=== PATIENT | male | born 1965 | race Caucasian/White ===

== ENCOUNTER 2025-09-25 18:24 | Emergency (ER) | payer OTHER, SELFPAY ==
[2025-09-25] VITALS (8 sets, daily range): BP systolic 75–138; BP diastolic 50–88; PULSE 106–120; RESP 11–25; TEMP 36.6; O2SAT 88–99; BMI 28.1
--- OUTSIDE RECORDS SUMMARY | 2025-09-25 20:20 | XMS RPT_ITS | CCD ---
Author Organization [facility] Inform ion Partnership [facility] Care Team Providers Care Spare Hand Carding Name Role Phone Edilma Shepard MD Unavailable Edilma Shepard MD Unavailable Tomas NASCIMENTO, Dr. Raman Unavailable [phone] Bonny Hall LPN Unavailable Unavailabl priscila Bashir PA-C, Katy Ramos Unavailable [phone] Maggy Wong MA Unavailable Unavailable MANDEEP SHAH Admitting Unavailable MANDEEP SHAH Primary Care Unavailable MANDEEP SHAH Attending Unavailable EDILMA SHEPARD Consulting Unavailable PROVIDER, UNKNOWN Consulting Unavailable PROVIDER, UNKNOWN Consulting Unavailable PROVIDER, UNKNOWN Consulting Unavailable [place], [place] [employer] Admitting Unavailable W[place], [place] [employer] Primary Care Unavailable WAVER[place], [place] [employer] Attending Unavailable EDILMA SHEPARD Consulting Unavailable PROVIDER, UNKNOWN Consulting Unavailable PROVIDER, UNKNOWN Consulting Unavailable PROVIDER, UNKNOWN Consulting Unavailable Medications Completed/Discontinued Medications Medication Drug Class(es) Dates Sig (Normalized) Sig (Original) [id number] 200 actuat albuterol 0.09 mg/actuat metered dose inhaler (4 sources) beta2-Adrenergic Agonist Start: 04-18-2013 End: 01-27-2015 take 2 puff(s) by inhalation every four to six hours as needed PROAIR HFA, 108 (90 Base)MCG/ACT (Inhalation Aerosol Solution) ; 2 (two) puff(s) every 4-6 hours as needed for 0 days Quantity: 1 {inhaler(s)} Refills: 0 Ordered: 27-Jan-2015 CORAL Hall Start: 18-Apr-2013 End: 27-Jan-2015 Status: Inactive Comments: Medication taken as needed. Comment on above: Medication taken as needed. amoxicillin 875 mg / clavulanate 125 mg oral tablet (8 sources) Penicillin-class Antibacterial Start: 02-06-2023 End: 02-16-2023 take 1 tablet by mouth twice daily Amoxicillin-Pot Clavulanate 875-125 MG Oral Tablet ; 1 (one) Tablet bid for 10 days Quantity: 20 {Tablet} Refills: 0 Ordered: 06-Feb-2023 MD Edilma Shepard Start: 06-Feb-2023 End: 16-Feb-2023 Status: Inactive Start: 01-27-2015 End: 02-06-2015 take 1 tablet by mouth twice daily at mealtime AUGMENTIN, 875-125MG (Oral Tablet) ; 1 (one) Tablet BID for 10 days Quantity: 20 {Tablet} Refills: 0 Ordered: 27-Jan-2015 RAFAEL Bashir Start: 27-Jan-2015 End: 06-Feb-2015 Status: Inactive Comments: Take with food Comment on above: Take with food azithromycin 250 mg oral tablet (4 sources) Macrolide Antimicrobial Start: 04-18-2013 End: 01-27-2015 ZITHROMAX Z-SUSAN, 250MG (Oral Tablet) ; 2 (two) Tablet today and then 1 tablet daily x 4 days for 0 days Quantity: 1 {z-susan} Refills: 0 Ordered: 27-Jan-2015 CORAL Hall Start: 18-Apr-2013 End: 27-Jan-2015 Status: Inactive Problems Active Problems Problem Classification Problem Date Documented Da te Episodic/Chronic Chronic obstructive pulmonary disease and bronchiectasis (8 sources) Bronchitis; Translations: [Bronchitis, not specified as acute or chronic] 01-28-2015 Episodic Conditions associated with dizziness or vertigo (8 sources) Benign paroxysmal positional vertigo; Translations: [Benign paroxysmal vertigo, unspecified ear] 02-06-2023 Episodic Other skin disorders (8 sources) Sebaceous cyst of skin; Translations: [Sebaceous cyst] 11-06-2023 Episodic Other skin disorders (4 sources) Infection of sebaceous cyst; Translations: [Sebaceous cyst] 02-06-2023 Episodic Past or Other Problems Problem Classification Problem Date Documented Da te Episodic/Chronic Unclassified (4 sources) cyst - patient reports cyst in the middle of his back, over the last week it got worsereports redness and swelling and pain when bumped reviewed by [facility] 02-06-2023 Unclassified (4 sources) Dizziness - The onset of the dizziness has been gradual and has been occurring in a persistent pattern for 5 days. The course has been recurrent (Seemed to be lessening every day until this morning.). The dizziness is characterized as spinning of the environment. The dizziness is precipitated by position change. There has been no associated nausea, vomiting, headache, fever or ear pain. The dizziness is exacerbated by getting up quickly (laying down and sitting). Note for Dizziness: About 3 weeks ago he had sinusitis and bronchitis symptoms. Continues with some symptoms. Cough is productive. No treatment. 01-28-2015 Unclassified (4 sources) Cold Symptoms - Symptoms include sneezing, nasal congestion, runny nose (drainage is clear), sore throat, scratchy throat, productive cough (phlegm is colored), fever (has not been checking his temperature), headache and facial pain, but do not include ear pain. The onset was sudden 5 day(s) ago (worsening since yesterday). The symptoms occur constantly. The patient describes this as moderate in severity. Current treatment includes acetaminophen and NSAIDs. The patient has not been exposed to an individual with similar symptoms. Medical history includes recurrent sinusitis, but patient denies history of seasonal allergies, recurrent strep pharyngitis, asthma, tonsillectomy or recurrent ear infections. Note for Upper respiratory infection: Has noticed wheezing and shortness of breath with activity. 04-18-2013 Results Test Name Value Interpretation Reference Range Facility LIPID PROFILEon 01-28-2025 Cholesterol [Mass/Vol] 177 mg/dL Normal 0 - 240 [facility] Comment on above: Performed By: #### 2 [id number] #### [address] [address] Cholesterol in HDL [Mass/Vol] 65 mg/dL High 40 - 60 [facility] Comment on above: Performed By: #### 2 12050 #### [address] [address] Cholesterol in LDL [Mass/Vol] 100 mg/dL Normal 0 - 129 [facility] Comment on above: Performed By: #### 2 [id number] #### [address] [address] Cholesterol.total /Cholesterol in HDL [Mass ratio] 2.7 {ratio} Normal 0.0 - 5.0 [facility] Comment on above: Performed By: #### 2 [id number] #### [facility],[address] [place] [address] Lipid 1996 panel Normal [facility] Comment on above: Result Comment: LIPI D PROFILE Performed By: #### 2 [id number] #### [facility],[address] [place] [address] Triglyceride [Mass/Vol] 62 mg/dL Normal 0 - 150 [facility] Comment on above: Performed By: #### 2 01681 #### [facility],[address] [place] [address] Final Surgical Pathology Rep [facility] 02-06-2024 Final Surgical Pathology Report . Pathology Reports Accession: Collected Date/Time: Received Date/Time: Pathologist: [id number] 02/04/2024 08:10 EDT 02/05/2024 09:07 EDT JAQUAN ABBOTT MD Final Surgical Pathology Report DIAGNOSIS: RIGHT BACK SKIN LESION: - EPIDERMAL INCLUSION CYST COMMENT: [id number] CLINICAL INFORMATION: BACK SKIN LESION SPECIMEN: A BACK SKIN LESION RIGHT GROSS DESCRIPTION: All parts labelled with patient name and [id number] Received in formalin labelled right back skin lesion Is a white -pink-jefferson partially collapsed cystic soft tissue with no identified surfacing skin measuring 4.5 x 3 x 2.8 cm. Sectioning reveals a cystic cavity throughout with a smooth cyst wall and no identified excrescences. RS-1 Lilia Pearson, Pathologists' Stock Transfer Clerk (ASCP) Dictated by LILIA PEARSON MICROSCOPIC DESCRIPTION: The microscopic examination is performed, except in the case of Gross Only. Electronically Signed by Pathology Report verified by [facility] JQAUAN ABBOTT Sign out Date: 02/06/2024 14:24 Performing Lab: [facility], [address] [place] [id number] [facility] Pathology Dept Disclaimer If ancillary studies were utilized, the following Laboratory Developed Test (LDT) disclaimer will apply: Under CLIA requirements, [facility] Pathology Laboratory is qualified to perform high complexity testing. For all ancillary stains, positive and negative controls stain appropriately. Performance characteristics of immunohistochemical and chromogenic in-situ hybridization tests have been determined by [facility]ology Laboratory. These tests are used for clinical purposes, They should not be regarded as investigational or for research. Normal [facility] ([place]) OPERATIVE PROCEDURESon 02-03 OPERATIVE PROCEDURES [facility] OPERATIVE REPORT NAME ACCOUNT SEX AGE ADMIT DISCHARGE PT MED. RECORD# NUMBER DATE DATE TYPE BRICE WONG [id number] M 58 02/04/24 02/04/24 2 A [id number] ROOM: [facility] DATE OF : 1965 DICTATING PHYSICIAN: Mandeep Shah DATE OF SURGERY: February 04, 2024 SURGEON: Mandeep Shah MD CHAIRMAN & CO FOUNDER: Nahum Altman CSA ANESTHESIOLOGIST: Colt Barnard MD ANESTHETIC: Local with 20 mL of 0.25% Sensorcaine with epinephrine. PREOPERATIVE DIAGNOSIS: POSTOPERATIVE DIAGNOSIS: Right back lesion. OPERATION PERFORMED: Excision of right back lesion. COMPLICATIONS: ESTIMATED BLOOD LOSS: Less than 3 mL. DRAIN: Quarter-inch fenestrated Cardale drain to separate wound site. FLUIDS GIVEN: 1000 mL of crystalloid. SPECIMEN: Right back lesion to Pathology. DISPOSITION: Stable, to recovery. INDICATIONS: Brice Wong is a 58-year-old gentleman who has a right back lesion which has been enlarging. DESCRIPTION OF OPERATION: After informed consent, demarcation, intravenous fluids and antibiotics, he was brought to the operating room and given anesthesia. He was then placed in the prone position and prepped and draped in the usual sterile fashion. Time-out verification was done. The demarcated lesion was carefully palpated, demarcated, and locally anesthetized with approximately 20 mL of 0.25% Sensorcaine Page 1 of 2 BRICE WONG Operative Report BRICE WONG : 1965 with epinephrine. Then an incision was made transversely over this lesion. The underlying sac-like structure was carefully dissected free with sharp dissection as well as electrocautery. The sac was sent to pathology. There was some foul-smelling material in this sac. The wound was copiously irrigated with antibiotic solution and checked for good hemostasis. Then a separate stab wound was created below the original incision. Through this, a quarter-inch fenestrated Bharat drain was placed and sutured in place with 3-0 Ethilon. The deeper layers of the wound were approximated with inverted interrupted 2-0 undyed Vicryl. The skin edges were held in nice closure with interrupted mattress sutures of 3-0 Ethilon followed by mupirocin and sterile dressings. The patient tolerated the procedure well. He was awakened and sent to the recovery room in good condition. The case will be discussed with the patient and spouse when he is more awake and alert. Follow-up for pathology will be in my office. Dictated By: Mandeep Shah MD 02/04/24 08:54 JOB #: [id number] Transcribed By: toan 02/04/24 20:52 Electronically signed by: E-Sign Dr. Mandeep Shah MD 02/04/24 22:19 Page 2 of 2 BRICE WONG A Operative Report Normal [facility] Vital Signs Date Time Vital Sign Value Performing Clinician Facility 02-06-2023 13:32-0400 Body height 172.72 cm Maggy Wong MA [facility], [facility].; [employer] [facility], [facility]. 02-06-2023 13:32-0400 Body mass index (BMI) [Ratio] 29.5 kg/m2 Maggy Wong MA [facility], [facility].; [facility], [facility]. 02-06-2023 13:32-0400 Body surface area Derived from formula 2.02 m2 Maggy Wong MA [facility], [facility].; [facility], [facility]. 02-06-2023 13:32-0400 Body weight 88 kg Maggy Wong MA [facility], [facility]; [employer] [facility], [facility]. 02-06-2023 13:32-0400 Diastolic blood pressure 82 mm[Hg] Maggy Wong MA [facility], [facility].; [employer] [facility], [facility]. Comment on above: Patient Position: Sitting; Cuff Location : Left Arm; Cuff Size: Standard 02-06-2023 13:32-0400 Heart rate 106 /min Maggy Wong MA [facility], [facility]; [employer], [facility]. Comment on above: Pattern: Regular 02-06-2023 13:32-0400 Systolic blood pressure 120 mm[Hg] Maggy [facility], [facility].; [place] [employer] [facility]. Comment on above: Patient Position: Sitting; Cuff Location : Left Arm; Cuff Size: Standard 01-27-2015 [id number]:110400 Body height 172.72 cm Bonny Hall CORAL [facility], [facility].; [employer] 01-27-2015 14:11-0400 Body mass index (BMI) [Ratio] 30.12 kg/m2 Bonny [facility], [facility] [employer], [employer]. 01-27-2015 14:11-0400 Body surface area Derived from formula 2.04 m2 Bonny Packibrahima [facility], [facility].; [place] [employer], [employer]. 01-27-2015 14:110400 Body temperature 97.7 [degF] Bonny [facility], [facility].; [employer]. Comment on above: Method: Tympanic 01-27-2015 14:110400 Body weight 89.87 kg Bonny Packibrahima CONSTRUCTION CODE ADMINISTRATOR [facility], [facility].; [employer], [employer]. 01-27-2015 14:11-0400 Diastolic blood pressure 94 mm[Hg] Bonny Packibrahima [facility], [facility] [employer]. Comment on above: Patient Position: Sitting; Cuff Location : Left Arm; Cuff Size: Standard 01-27-2015 14:110400 Heart rate 68 /min Bonny Weibrahima MONCADA [facility], [facility] [employer]. Comment on above: Pattern: Regular 01-27-2015 14:11-0400 Inhaled oxygen concentration 20 % Bonny Weibrahima [facility] [employer] [facility], [facility].; [employer]. Comment on above: Room air 01-27-2015 14:11-0400 Inhaled oxygen concentration 21 % Bonny Hall [facility] [employer]. Comment on above: Room air 01-27-2015 14:11-0400 SaO2% (BldA) [Mass fraction] 99 % Bonny Hall [facility] [place] [employer] [facility], [employer]. 01-27-2015 14:11-0400 Systolic blood pressure 135 mm[Hg] Bonny Packibrahima MONCADA [facility], [facility].; [place] [employer], [employer]. Comment on above: Patient Position: Sitting; Cuff Location : Left Arm; Cuff Size: Standard 04-18-2013 08:34-0400 Body height 172.72 cm Bonny Isabel MONCADA [facility] [place] [employer] [facility], [employer]. 04-18-2013 08:34-0400 Body mass index (BMI) [Ratio] 29.69 kg/m2 Bonny Weibrahima [facility], [facility] [place] [employer], [employer]. 04-18-2013 08:34-0400 Body surface area Derived from formula 2.02 m2 Bonnyjavon Hall LPN [facility] [employer], [employer]. 04-18-2013 08:34-0400 Body temperature 99.5 [degF] [facility]ny [facility], [facility].; [employer], [employer]. Comment on above: Method: Tympanic 04-18-2013 08:34-0400 Body weight 88.57 kg Bonny Weibrahima MONCADA [facility], [facility].; [place] [employer] 04-18-2013 08:34-0400 Diastolic blood pressure 82 mm[Hg] Bonny Isabel MONCADA [facility], [facility].; [employer], [employer]. Comment on above: Patient Position: Sitting; Cuff Location : Left Arm; Cuff Size: Standard 04-18-2013 08:34-0400 Heart rate 76 /min Bonny Isabel [place]ADA [place] [employer] [facility], [facility].; [employer]. Comment on above: Pattern: Regular 04-18-2013 08:34-0400 Inhaled oxygen concentration 20 % Bonny Hall LPN [facility] [employer], [employer]. Comment on above: Room air 04-18-2013 08:34-0400 Inhaled oxygen concentration 21 % Bonny Hall LPN [place] [employer] [facility], [facility] [employer]. Comment on above: Room air 04-18-2013 08:34-0400 SaO2% (BldA) [Mass fraction] 95 % Bonny Hall LPN [place] [facility] [place] [facility] 04-18-2013 08:34-0400 Systolic blood pressure 122 mm[Hg] Bonny Hall LPN [facility] [employer] [facility] [place] [facility]. Comment on above: Patient Position: Sitting; Cuff Location : Left Arm; Cuff Size: Standard Encounters Encounter Date Encounter Type Care Provider Facility Start: 01-28-2025 End: 01-28-2025 [facility] Start: 02-04-2024 End: 02-04-2024 [facility] Start: 11-06-2023 End: 11-06-2023 Orders [facility]il[facility] Shepard [facility] Start: 02-06-2023 End: 02-06-2023 Patient encounter procedure Edilma Shepard MD Work Phone: [facility] [facility] Start: 01-27-2015 End: 01-28-2015 Patient encounter procedure Edilma Shepard MD Work Phone: [facility] Start: 04-18-2013 End: 04-18-2013 Patient encounter procedure Edilma Shepard MD Work Phone: [facility] Procedures Date Procedure Procedure Detail Performing Clinician Start: 02-06-2023 End: 02-06-2023 Incision & drainage abscess simple/single Edilma Shepard MD Work Phone: Start: 04-18-2013 End: 04-18-2013 No Known Past Surgical History Bonny Hall LPN Plan of Treatment Date Care Activity Detail Author Start: 01-27-2015 Patient Education Positional V ertigo *: benign paroxysmal positional vertigo Indication: BPPV (benign paroxysmal positional vertigo) Start: 27-Jan-2015 Instruction Type: Patient Education [facility] [employer]. Social History Date Type Detail Facility Caffeine Use Caffeine Use [facility] [employer] [place] [facility]. Marital status: Marital status: ; . [place] [employer] [facility] [employer]. Tobacco Use: Tobacco Use: ; Never smoker. [place] [employer] [facility].; [employer]. Male [facility] [employer].; [employer]. Work Phone: Never smoked tobacco [place] [employer] [facility].; [employer] Work Phone: [facility] [employer].; [employer]. Work Phone: Family History No Family History Records Found Cancer Status:Active Comments:Sister. Brain tumor Coronary Artery Disease Status:Active Comments :Father. Hypertension Status:Active Comments:Mother. Cancer Status:Active Comments:Sister. Brain tumor Coronary Artery Disease Status:Active Comments :Father. Hypertension Status:Active Comments:Mother. Cancer Status:Active Comments:Sister. Brain tumor Coronary Artery Disease Status:Active Comments :Father. Hypertension Status:Active Comments:Mother. Cancer Status:Active Comments:Sister. Brain tumor Coronary Artery Disease Status:Active Comments :Father. Hypertension Status:Active Comments:Mother. Summary Purpose Advance Directives No Advanced Directives Records FoundNo Advanced Directives Records Found Additional Source Comments (unrecognized sect ion and content) No Status Records FoundNo Status Records Found INFORMATION SOURCE (unrecogn ized section and content) DATE CREATED AUTHOR 02/08/2024 [facility] ([place]) DATE CREATED AUTHOR AUTHOR'S ORGANIZ ATION 01/30/2025 [facility] FOR RECORDS PERTAINING TO PATIENTS WHO ARE OR HAVE BEEN ENROLLED IN A CHEMICAL DEPENDENCY/SUBSTANCEABUSE PROGRAM, SOME INFORMATION MAY BE OMITTED. This clinical summary was aggregated from multiple sources. Caution should be exercised in using it in the provision of clinical care. This summary normalizes information from multiple sources, and as a consequence, information in this document may materially change the coding, format and clinical context of patient data. In addition, data may be omitted in some cases. CLINICAL DECISIONS SHOULD BE BASED ON THE PRIMARY CLINICAL RECORDS. [facility] provides no warranty or guarantee of the accuracy or completeness of information in this document.
--- NOTE | 2025-09-25 20:32 | EX.ED.UPPERE ---
HPI History of Present Illness Chief Complaint: Upper Extremity Injury Narrative Narrative: Chief complaint and HPI: 59-year-old male with no significant past medical history other than recent left shoulder tumor diagnosis presents for evaluation of left shoulder pain. Patient states he had a rotator cuff injury in which he was seeing an orthopedic physician. 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 He states he is currently following up with oncology in [place] in which the plan will be for biopsies. Patient states he began having pain in his left shoulder today which he describes as burning. Pain is worse with movement of the arm. He denies any fever, chills, shortness of breath, chest pain, abdominal pain, nausea, vomiting, numbness or tingling. Review of systems: See HPI Medications: As listed on the chart Allergies: As listed on the chart PFSH: Per chart Vital signs: As listed on the chart. Reviewed. Physical exam: Gen: A&O x3, NAD Head: Normocephalic, atraumatic Eyes: No sclera icterus, conjunctiva clear ENT: Moist mucous membranes Neck: Trachea midline, No JVD, full range of motion, nontender CV: RRR, no murmurs Resp: Lungs CTA BL, no w/r/c GI: Abd soft, non-distended, non-tender, no r/r/g Musc: Full range of motion of all the extremities including the left upper extremity although endorses pain with movement of the left shoulder, left shoulder is tender to palpation diffusely, left shoulder without erythema/warmth/ecchymosis/swelling, radial pulse +2 bilaterally, good capillary refill, compartments soft, sensation intact no midline spinal tenderness, no bony step-off Skin: Warm, dry Neuro: Alert, oriented, grossly intact Psych: Cooperative, appropriate mood and affect PFS PFSH Medical History Contact dermatitis Home Medications ?Medication ?Instructions ?Recorded ?Last Taken ?Type NK 09/25/25 Unknown History Allergy/AdvReac Type Severity Reaction Status Date / Time No Known Allergies Allergy Verified 09/25/25 18:25 Family History no significant family his Surgical History no surgical history Social History Smoking Status: Never smoker EXAM Physical Exam Const Vital Signs: 09/25/25 18:24 Temperature 97.8 F Temperature Source Oral Pulse Rate 120 H Respiratory Rate 18 Blood Pressure 92/78 Blood Pressure Mean 82 Pulse Ox 99 Oxygen Delivery Method Room Air MDM MDM MDM Narrative Medical decision making narrative: 59-year-old male with no significant past medical history other than recent left shoulder tumor diagnosis presents for evaluation of left shoulder pain. Patient states he had a rotator cuff injury in which he was seeing an orthopedic physician. 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 He states he is currently following up with oncology in [place] in which the plan will be for biopsies. Patient states he began having pain in his left shoulder today which he describes as burning. Pain is worse with movement of the arm. On chart review, and unable to review the recent MRI. MRI currently in the system is from 2012. On presentation, patient is tachycardic but they think it is secondary to pain. He is soft blood pressure. Fentanyl, NS bolus, Zofran ordered. Patient's blood pressure improved prior to receiving fluids. Morphine ordered for pain. Basic labs ordered with CT of the shoulder. Differential diagnosis includes but is not limited to pain secondary to tumor, hemorrhage secondary to tumor, occult fracture. CBC with mild leukocytosis of 12.2. No anemia. BMP shows mild dehydration with mild hyponatremia at 130 and a creatinine of 1.41. Patient does not know his baseline labs. I do not have previous labs to compare to. States he has been eating and drinking well. CT of the left shoulder shows probable large heterogeneous infiltrative soft tissue mass surrounding the left glenohumeral joint. Associated ill-defined aggressive osseous erosion/lytic changes involving the medial body and glenoid of the left scapula, and proximal left humeral head/guidepin for cyst. Acute comminuted pathological fracture left scapular glenoid. No dislocation. Given patient follows with [facility], I did consult them and I spoke with Dr. Carvajal. Plan is sling and pain management. Follow-up with oncology. On reevaluation, despite morphine, fentanyl patient is still endorsing severe pain. He is tachycardic secondary to the pain. Dilaudid ordered. Plan will be to admit the patient for pain control. I spoke with the hospitalist, Dr. Mason. Patient may be transferred. She will make a call and let me know. Dr. Mason spoke with Dr. Carvajal. Given the pain is intractable recommended him be transferred to a hospital with orthopedic oncology. Recommended [facility]. Transfer line was contacted and patient was discussed. Awaiting accepting physician. Impression: 1. Intractable left shoulder pain 2. Acute comminuted pathological fracture of the left scapula glenoid secondary to infiltrative soft tissue mass Discharge Plan Triage Chief Complaint: Upper Extremity Injury ED Provider: Baljit Angeles Dx/Rx/DC Orders Prescriptions: No Action NK Primary Care Provider: Pedro Shepard Referrals: Pedro Shepard MD [Primary Care Provider, Medical] Print Language: Persian
[2025-09-25 20:33] LABS: Hematocrit 42.4 % (40-54); Hemoglobin 14.8 g/dL (13.0-16.5); Immature Granulocytes Count 0.120 X10^3/uL (0.0-0.0); Mean Corp Hgb Conc 34.9 g/dL (32-36); Mean Corpuscular Volume 84.8 fL (80-94); Mean Platelet Vol. 9.5 fl (6.2-12.0); NRBC Flagged by Analyzer 0 % (0-5); POSITIVE DIFFERENTIAL YES; Platelet Count 179 K/mm3 (150-450); RBC Distribution Width CV 12.5 % (11.6-14.6); RBC Distribution Width SD 38.1 fl (35.1-43.9); Red Blood Count 5.00 M/mm3 (4.6-6.2); White Blood Count 12.2 K/mm3 (4.4-11.0)
[2025-09-25] MEDS: fentaNYL 100 MCG/2 ML Ampul 50 MCG IV (20:37)
[2025-09-25] MEDS: 0.9% Normal Saline (1000mL) 1,000 ML 1000 ML IV (20:38)
[2025-09-25 21:05] LABS: Anion Gap 13 (5-15); BUN 22 mg/dL (4-19); BUN/Creat Ratio 15.3 RATIO (10-20); Calcium,Total 9.1 mg/dL (7.6-11.0); Carbon Dioxide 24.8 mmol/L (21.0-32.0); Chloride 92 mmol/L (98-108); Estimated Creatinine Clearance 58.07 ml/min (50-250); Glucose 106 mg/dL (70-99); Potassium 3.6 mmol/L (3.3-5.1)
--- NOTE | 2025-09-25 21:05 | CT_ITS ---
PROCEDURE: CT LEFT EXTREMITY UPPER WITH CONTRAST 09/25/2025 REASON FOR EXAM: LEFT SHOULDER PAIN, KNOWN TUMOR TECHNIQUE: EXTREMITY UPPER WITH CONTRAST coronal and Sagittal reconstruction series were provided. CT left shoulder with intravenous contrast. One or more dose reduction techniques were used (e.g., Automated exposure control, adjustment of the mA and/or kV according to patient size, use of iterative reconstruction technique. CONTRAST: Isovue 370 VOLUME: 98 mL RADIATION DOSE SUMMARY: CTDlvol: 27.44 mGy DLP: 721.66 mGycm COMPARISON: None available. FINDINGS: Aggressive appearing ill-defined osseous erosion/permeative lytic changes involving the medial body and glenoid of the left scapula, and the left humeral head and proximal-mid diaphysis. There is an acute minimally displaced comminuted intra-articular pathologic fracture involving the left glenoid of the scapula. No additional fracture or dislocation visualized. Intact glenohumeral and AC joints. Large ill-defined heterogeneous probable infiltrative soft tissue mass surrounding the left glenohumeral joint, with marginal regions of cystic change which may be related to the lesion or joint capsule, particularly at the superolateral aspect. There appears to be a few speckled foci of mineralization. CT/Extremity Upper WITH Contrast IMPRESSION: Probable large heterogeneous infiltrative soft tissue mass surrounding the left glenohumeral joint. Associated ill-defined aggressive osseous erosion/permeative lytic changes involving the medial body a nd glenoid of the left scapula, and proximal left humeral head/diaphysis. No comparison available. Acute comminuted pathologic fracture of the left scapular glenoid. No dislocat ion. Reading Location: [id number]
[2025-09-25] MEDS: MELATONIN 10 MG TABLET 5 MG PO (23:17)
[2025-09-26] VITALS (10 sets, daily range): BP systolic 132–164; BP diastolic 78–95; PULSE 108–128; RESP 16–26; TEMP 36.6; O2SAT 86–98
== END 2025-09-26 04:02 | disposition short-term general hospital (02) ==
LOC: ED 20:17
PROVIDERS: Emergency Provider Surgery; PCP Family Medicine; Visit Provider Surgery
DX: M84.412A Pathological fracture, left shoulder, initial encounter for fracture (principal); M25.512 Pain in left shoulder
CPT/HCPCS: 73201; 80048; 85025; 96361; 96374; 96375; 99285; Q9967; A4216; J2405